=== PATIENT | female | born 1975 | race Caucasian/White ===

== ENCOUNTER 2020-03-11 22:17 | Emergency (ER) | payer BC, SELFPAY ==
[~2020-03-11] VITALS: Ht 154.9 cm; Wt 93.0 kg
[2020-03-11 22:17] VITALS: BP 136/82
--- NOTE | 2020-03-11 22:20 | NUR ---
45 YEAR OLD FEMALE BIBA FOR COMPLAINS OF SHORTNESS OF BREATHE AND NONRADIATING CHEST PAIN WHEN COUGHING STARTING 12 HOURS AGO. PT STATES THAT SHE HAS HAD A NONPRODUCTIVE COUGH X 4 DAYS AND WAS TESTED POSITIVE FOR COVID ON WEDNESDAY. PT LUNGS CLEAR BILATERAL,RR 14, SPO2 98% ON RA. PT AOX4, BREATHING EVEN AND UNLABORED, SKIN WARM AND DRY. BED IN LOWEST POSITION, LOCKED, BED RAIL UPX1. PT PLACED ON MONITOR, ERMD MADE AWARE PMH - DENIES ALLERGIES - NKA
--- NOTE | 2020-03-11 22:20 | NUR ---
PT TREVOR BLS. TAKEN TO BED 10
--- NOTE | 2020-03-11 22:34 | NUR ---
Respiratory Therapist at bedside for respiratory intervention.
--- NOTE | 2020-03-11 22:56 | NUR ---
RSV, FLU, AND COVID SWAB SENT TO LAB
--- NOTE | 2020-03-11 23:12 | NUR ---
Dr. Guzman examining patient.
[2020-03-11 23:14] LABS: BASOPHILS % (AUTO) 0.2 % (0.0-2.0); EOSINOPHILS # (AUTO) 0.1 K/uL (0-0.4); HEMATOCRIT 40.1 % (36-48); HEMOGLOBIN 13.4 g/dL (12.0-16.0); LYMPHOCYTES # (AUTO) 2.1 K/uL (2.5-16.5); LYMPHOCYTES % (AUTO) 36.1 % (20.5-51.1); MEAN CORPUSCULAR HEMOGLOBIN 31 pg (27-31); MEAN CORPUSCULAR HGB CONC 33 g/dL (33-37); MEAN CORPUSCULAR VOLUME 92.7 fL (80-94); MONOCYTES # (AUTO) 0.5 K/uL (0.8-1.0); MONOCYTES % (AUTO) 9.6 % (1.7-9.3); NEUTROPHILS % (AUTO) 53.1 % (42.2-75.2); PLATELET COUNT (AUTO) 286 K/uL (140-450); RED BLOOD CELL COUNT(AUTO) 4.33 MIL/uL (4.20-5.40); RED CELL DISTRIBUTION WIDTH 13.3 % (11.6-13.7); WHITE BLOOD COUNT (AUTO) 5.7 K/uL (4.8-10.8)
[2020-03-11 23:18] LABS: APPEARANCE,URINE CLEAR (CLEAR); BILIRUBIN,URINE NEGATIVE (NEGATIVE); BLOOD, URINE 3+ (NEGATIVE); COLOR,URINE YELLOW (YELLOW); LEUKOCYTE ESTERASE ,URINE NEGATIVE (NEGATIVE); NITRITE, URINE NEGATIVE (NEGATIVE); UGLUCOSE NEGATIVE (NEGATIVE)
--- NOTE | 2020-03-11 23:25 | NUR ---
X-Ray at bedside.
[2020-03-11 23:28] LABS: RBC,URINE 11-20 (MOD) /HPF (0-5); WBC,URINE 0-5 /HPF (0-5)
[2020-03-11 23:34] LABS: ALBUMIN 3.6 g/dL (3.4-5.0); CARBON DIOXIDE 25.6 mmol/L (21-32); CREATININE 0.9 mg/dL (0.6-1.3); POTASSIUM 3.6 mmol/L (3.5-5.1); PROTHROMBIN TIME 10.1 secs (10.8-13.4); TOTAL BILIRUBIN 0.8 mg/dL (0.0-1.0)
[2020-03-11 23:37] LABS: RSV NEGATIVE (NEGATIVE)
--- NOTE | 2020-03-11 23:40 | NUR ---
Luis Fernando (father) -- [phone] Anatoliy (son) -- [phone]
[2020-03-11 23:45] LABS: D-DIMER < 100 ng/ml (0-400)
[2020-03-11 23:52] LABS: C-REACTIVE PROTEIN QUANT 0.7 mg/dL (0.0-0.9)
[2020-03-11 23:57] LABS: LACTATE DEHYDROGENASE 169 U/L (81-234)
[2020-03-12 00:21] LABS: FIBRINOGEN 344 mg/dL (200-400)
--- NOTE | 2020-03-12 00:30 | NUR ---
Patient discharged with v/s stable. Written and verbal after care instructions given and explained. Patient alert, oriented and verbalized understanding of instructions. Ambulatory with steady gait. All questions addressed prior to discharge. ID band removed. Patient advised to follow up with PMD. Rx of PROMETHAZINE AND TAMIFLU given. Patient educated on indication of medication including possible reaction and side effects. Opportunity to ask questions provided and answered.
--- NOTE | 2020-03-13 01:49 | NUR ---
recevied a postive covid swab -- results given to infection control office.
== END 2020-03-12 00:30 | disposition home or self-care (01) ==
LOC: EEVIPCON 22:17 → MED 22:17
DX: U07.1 COVID-19 (principal)
CPT/HCPCS: 36415; 71045; 80053; 81001; 82550; 82728; 82803; 83605; 83615; 83880; 84484; 85025; 85379; 85384; 85610; 85730; 86140; 87040; 87086; 87420; 87804; 93005; 99285; U0003